=== PATIENT | female | born 2000 | race Caucasian/White ===

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

== ENCOUNTER 2020-06-19 12:44 | Emergency (ER) | payer OTHER ==
[2020-06-19 14:18] LABS: HEMOGLOBIN 12.3 gm/dl (12.3-15.3); RED BLOOD COUNT 4.05 M/UL (4.00-5.10); WHITE BLOOD COUNT 6.9 K/UL (4.5-11.0)
[2020-06-19 14:38] LABS: BUN/CREATININE RATIO 17 (0-10)
== END 2020-06-19 18:13 | disposition home or self-care (01) ==
LOC: ER1 12:44
PROVIDERS: Physician Assistant Medical
DX: O20.0 Threatened abortion (principal); O99.331 Smoking (tobacco) complicating pregnancy, first trimester; F17.290 Nicotine dependence, other tobacco product, uncomplicated; Z3A.01 Less than 8 weeks gestation of pregnancy
CPT/HCPCS: 76817; 80053; 81001; 84702; 85025; 86850; 86900; 86901; 96372; 99284; J2790; J2791

== ENCOUNTER → 2020-06-21 20:09 | Emergency (ER) | payer OTHER | END | disposition left against medical advice (07) | LOC: ER1 20:09 | DX: O20.9 Hemorrhage in early pregnancy, unspecified (principal); Z3A.01 Less than 8 weeks gestation of pregnancy; Z53.21 Procedure and treatment not carried out due to patient leaving prior to being seen by health care provider ==